=== PATIENT | female | born 2000 | race Caucasian/White ===

== ENCOUNTER 2021-01-30 10:10 | Emergency (ER) | payer OTHER ==
[~2021-01-30] VITALS: Ht 183 cm; Wt 77.1 kg
--- NOTE | 2021-01-30 10:44 | ED Lower Extremity ---
General Chief Complaint: Lower Extremity Stated Complaint: LEFT KNEE INJURY,PAIN/SWELLING Nursing Triage Note: PT TO [facility] VIA W REPORTS OF AN EPISODE OF DIZZINESS FOLLOWED BY FALLING DOWN A FLIGHT OF STAIRS AT APPROX 0945 THIS AM. PT REPORTS SHE HEARD HER LEFT KNEE "SNAP" IS UNABLE TO WALK ON IT, AND C/O PAIN. PT HAD ANOTHER EPISODE OF DIZZINESS WHILE TRANSFERRING FROM TO BED. Source: patient Exam Limitations: no limitations History of Present Illness Date Seen by Provider: Jan 30, 2021 Time Seen by Provider: 10:43 Initial Comments To ER with reports of left ankle pain. She had an episode of dizziness which caused her to fall down the stairs at about 945 this morning. She hurt her left ankle snap. She has no pain in her knee. Onset: just prior to arrival Severity: moderate Pain/Injury Location: left ankle Modifying Factors: Worse With Movement Allergies and Home Medications Patient Home Medication List Home Medication List Reviewed: Yes Hydrocodone/Acetaminophen (Hydrocodone-Acetamin 5-325 mg) 1 Each Tablet, 1 TAB PO Q4H PRN for PAIN-MODERATE (5-7) Prescribed by: COLT GAO on 01/30/21 1156 Review of Systems Constitutional: see HPI EENTM: see HPI Respiratory: no symptoms reported Cardiovascular: no symptoms reported Genitourinary: no symptoms reported Musculoskeletal: see HPI Skin: no symptoms reported Psychiatric/Neurological: No Symptoms Reported Past Qqtvbrh-[id number]-[id number] Hx Patient Social History Tobacco Use?: No Smoking Status: Never a Smoker Use of E-Cig and/or Vaping dev: No Substance use?: No Alcohol Use?: No Physical Exam Vital Signs Vital Signs - First Documented 01/30/21 10:17 Temp 36.2 Pulse 70 Resp 22 Pulse Ox 99 O2 Delivery Room Air Capillary Refill : Less Than 3 Seconds Height, Weight, BMI Height: '" Weight: lbs. oz. kg; 23.00 BMI Method: General Appearance: WD/WN, no apparent distress HEENT: PERRL/EOMI, normal ENT inspection Neck: non-tender, full range of motion Respiratory: no respiratory distress, no accessory muscle use Hips: bilateral hip non-tender, bilateral hip normal inspection, bilateral hip normal range of motion Legs: bilateral leg non-tender, bilateral leg normal inspection, bilateral leg normal range of motion Knees: bilateral knee non-tender, bilateral knee normal inspection, bilateral knee normal range of motion Ankles: left ankle other (Swelling and tenderness to palpation of the lateral malleolus no medial joint tenderness. No deformity. Strong dorsalis pedis pulse. No pain over the upper fibula or any part of the tibia.) Feet: bilateral foot non-tender, bilateral foot normal inspection Neurologic/Psychiatric: alert, normal mood/affect, oriented x 3 Skin: normal color, warm/dry Progress/Results/Core Measures Results/Orders My Orders Orders - COLT GAO APRN Ankle, Left, 3 Views (01/30/21 10:42) Vital Signs/I&O 01/30/21 10:17 Temp 36.2 Pulse 70 Resp 22 B/P (MAP) Pulse Ox 99 O2 Delivery Room Air Departure Communication (Admissions) NAME: [facility] REC#: [id number] PT STATUS: REG ER : 2000 PHYSICIAN: COLT GAO APRN ADMIT DATE: 01/30/21/ER Draft Date of Exam:01/30/21 ANKLE, LEFT, 3 VIEWS History: Left ankle pain TECHNIQUE: 3 views of the left ankle COMPARISON: None FINDINGS: There is an oblique minimally posteriorly displaced Mendez type B fracture of the lateral malleolus with moderate overlying soft tissue swelling. The ankle mortise is mildly prominent at the medial clear space, concerning for ligamentous injury. No significant joint effusion is seen. IMPRESSION: 1. Minimally displaced fracture of the lateral malleolus in the left ankle. 2. Borderline widening of the medial clear space, could be due to ligamentous injury. Dictated on workstation # [id number] Dict: 01/30/21 1140 Trans: 01/30/21 1146 BANNER [id number] Interpreted by: MARBELLA WRIGHT MD Electronically signed by: Impression Primary Impression: Fibula fracture Disposition: 01 HOME, SELF-CARE Condition: Stable Departure-Patient Inst. Decision time for Depature: 11:47 Referrals: ALEN ELI (PCP) Primary Care Physician WILFRIDO OLIVARES MD, TERRY D MD ZAFUTA,VASHTI Wolfe MD Patient Instructions: Ankle Fracture (DC) Add. Discharge Instructions: 1. Elevate the foot is much as possible for the next few days. This will help reduce swelling. Wear the Lebron wrap and the ankle splint at all times except when showering. This includes wearing it while sleeping. Call an orthopedic surgeon of your choosing tomorrow to make an appointment to be seen for follow- up in the next 1 to 2 weeks. This should not need surgery but of course I will ultimately defer that decision to the orthopedists who are the specialists. Theyll likely at least switch this splint to a cast during follow up. All discharge instructions reviewed with patient and/or family. Voiced understanding. Scripts Hydrocodone/Acetaminophen (Hydrocodone-Acetamin 5-325 mg) 1 Each Tablet 1 TAB PO Q4H PRN for PAIN-MODERATE (5-7), #20 TAB Prov: COLT GAO APRN 01/30/21 COLT GAO APRN Jan 30, 2021 10:44
--- NOTE | 2021-01-30 11:47 | Diagnostic Imaging Report ---
History: Left ankle pain TECHNIQUE: 3 views of the left ankle COMPARISON: None FINDINGS: There is an oblique minimally posteriorly displaced Mendez type B fracture of the lateral malleolus with moderate overlying soft tissue swelling. The ankle mortise is mildly prominent at the medial clear space, concerning for ligamentous injury. No significant joint effusion is seen. IMPRESSION: 1. Minimally displaced fracture of the lateral malleolus in the left ankle. 2. Borderline widening of the medial clear space, could be due to ligamentous injury. Dictated by: Dictated on workstation # [id number]
[2021-01-30] MEDS ORDERED: ACHD5005 PO (11:55)
[2021-02-03] MEDS ORDERED: ACET-2267 PO (08:44)
[2021-02-03] MEDS ORDERED: IBUP-2473 PO (08:44)
[2021-02-03] MEDS ORDERED: CETI10TA49 PO (13:14)
[2021-02-03] MEDS ORDERED: MV-M1TAB20 PO (13:14)
== END 2021-01-30 12:00 | disposition home or self-care (01) ==
LOC: ER 10:12
DX: S82.62XA Displaced fracture of lateral malleolus of left fibula, initial encounter for closed fracture (principal); W10.8XXA Fall (on) (from) other stairs and steps, initial encounter
CPT/HCPCS: 73610; 99283; L4350

== ENCOUNTER → 2021-02-01 | Outpatient (CLI) | payer OTHER ==
[~2021-02-01] MED LIST: ACET-2267 PO; ACHD5005 PO; CETI10TA49 PO; IBUP-2473 PO; MV-M1TAB20 PO
== END ==
LOC: ORTHO 11:04
PROVIDERS: ATTEND Orthopaedic Surgery
DX: S82.832A Other fracture of upper and lower end of left fibula, initial encounter for closed fracture (principal); X58.XXXA Exposure to other specified factors, initial encounter
CPT/HCPCS: 99202

== ENCOUNTER 2021-02-03 05:40 | Outpatient (CLI) | payer OTHER ==
[~2021-02-03] VITALS: Ht 182.8 cm; Wt 77.1 kg
[~2021-02-03 05:40] MED LIST changes: -ACET-2267 PO; -CETI10TA49 PO; -IBUP-2473 PO; -MV-M1TAB20 PO
[2021-02-03] MEDS ORDERED: ACET-2267 PO ×2 (08:44)
[2021-02-03] MEDS ORDERED: IBUP-2473 PO ×2 (08:44)
[2021-02-03] MEDS ORDERED: CETI10TA49 PO ×2 (13:14)
[2021-02-03] MEDS ORDERED: MV-M1TAB20 PO ×2 (13:14)
[2021-02-04] MEDS ORDERED: ACHD5005 PO ×2 (12:08)
== END 2021-02-03 13:22 | disposition home or self-care (01) ==
LOC: PREOP 05:40
PROVIDERS: ATTEND Orthopaedic Surgery
DX: Z01.818 Encounter for other preprocedural examination (principal)

== ENCOUNTER 2021-02-04 09:03 | Day surgery (SDC) | payer OTHER ==
[~2021-02-04] VITALS: Ht 182.8 cm; Wt 77.1 kg
[2021-02-04] VITALS (11 sets, daily range): BP systolic 86–123; BP diastolic 45–101
[~2021-02-04 09:03] MED LIST changes: +ACET-2267 PO; +CETI10TA49 PO; +IBUP-2473 PO; +MV-M1TAB20 PO
[2021-02-04] MEDS ORDERED: LACTATED RINGERS 1,000 ML IV PRN (09:30)
[2021-02-04] MEDS ORDERED: ceFAZolin INJECTION 1,000 MG in WATER (STERILE) FOR INJECTION 10 ML IV ONE (09:30)
[2021-02-04] MEDS ORDERED: proPOfol 200 MG/20 ML (DIPRIVAN) VIAL IV ONE (09:37)
[2021-02-04] MEDS ORDERED: LIDOCAINE PF 2% 5 ML (XYLOCAINE) VIAL ONE (09:37)
[2021-02-04] MEDS ORDERED: SEVOFLURANE (ULTANE) 15 ML INHAL SOLN ONE ×2 (09:37→11:30)
[2021-02-04] MEDS ORDERED: MIDAZOLAM 2 MG/2 ML (VERSED) VIAL ONE (09:37)
[2021-02-04] MEDS ORDERED: fentaNYL INJ 100 MCG/2 ML AMP ONE ×2 (09:37→11:27)
[2021-02-04] MEDS ORDERED: ONDANSETRON 4 MG/2 ML (SDV) Z0FRAN ONE (09:37)
[2021-02-04] MEDS ORDERED: BUPIVACAINE 0.25% 30 ML (SENSORCAINE) VIAL ONE (09:39)
[2021-02-04] MEDS ORDERED: NEO/POLY/BAC (NEOSPORIN) OINT 15 GM TUBE ONE (09:39)
--- NOTE | 2021-02-04 12:02 | Anesthesia-General Post-Op ---
General Patient Condition Mental Status/LOC: Same as Preop Cardiovascular: Satisfactory Nausea/Vomiting: Absent Respiratory: Satisfactory Pain: Controlled Complications: Absent Post Op Complications Complications None Follow Up Care/Instructions Patient Instructions None needed. Anesthesia/Patient Condition Patient Condition Patient is doing well, no complaints, stable vital signs, no apparent adverse anesthesia problems. No complications reported per nursing. RAÚL ASTUDILLO CRNA Feb 04, 2021 12:02
[2021-02-04] MEDS ORDERED: ACHD5005 PO ×2 (12:08)
[2021-02-04] MEDS ORDERED: MEPERIDINE (DEMEROL) INJ 50 MG/ML IVP ONE (12:15)
[2021-02-04] MEDS ORDERED: morphine INJ 10 MG/ML 1ML (SYR OR VIAL) IVP ONE (12:15)
[2021-02-04] MEDS ORDERED: ONDANSETRON 4 MG/2 ML (SDV) Z0FRAN IVP PRN (12:15)
--- NOTE | 2021-02-04 12:18 | Operative Report - Ortho ---
Operative Report Surgeon (s)/[employer] Surgeon MICHELINE OLIVARES MD [employer] n/a Pre-Operative Diagnosis LEFT DISTAL FIBULA FRACTURE Post-Operative Diagnosis same Operative Report Date of Procedure: Feb 04, 2021 Name of Procedure Performed: Open reduction and internal fixation of left distal fibula fracture Description & Findings After obtaining informed consent and marking the patient in the preoperative holding area, the patient was administered IV antibiotics and taken to the operating room. General anesthesia was induced. Surgical timeout was taken. The left lower extremity was prepped and draped in the usual sterile fashion. Incision was made over the distal fibula. Dissection was carried down to bone. Fracture site was irrigated, curretted, and prepared. Provision reduction was performed using Czech clamps. A lag screw was placed across the fracture site for compression. The clamps were removed. A [employer] distal fibular plate was selected and placed against the bone. C-arm was used to confirm position. A nonlocking screw was placed proximal to the fracture followed by a nonlocking screw distally. Two locking screws were placed in the diaphyseal portion of the plate followed by 2 locking screws distally. The nonlocking screw distally was removed and a locking screw was used to replace it. C-arm in the AP, oblique, and lateral planes demonstrated appropriate reduction of the fracture, intact mortise, intact syndesmosis, and appropriate hardware placement. Final images were transferred to PACS. Wound was lavaged with normal saline. Fascial layer was closed with 0 vicryl. Subcutaneous layer was closed with 3-0 vicryl. Skin was closed with 3-0 nylon. Incision site was injected with 0.25% Marcaine. Incision was dressed with xeroform, 4x4s, ABD, cast padding, posterior splint, and PEMA wraps. Patient tolerated the procedure well and was stable to the recovery room. Anesthesia Type General Estimated Blood Loss 20 mL Specimen(s) collected/removed None MICHELINE OLIVARES MD Feb 04, 2021 12:18
[2021-02-04] MEDS ORDERED: KETOROLAC 30 MG/ML VIAL IVP ONE (12:30)
--- NOTE | 2021-02-04 12:47 | Diagnostic Imaging Report ---
INDICATION: Postop open reduction and fixation. FINDINGS: 3 views. There is a side plate with bone screws transfixing distal fibular fracture. Ankle mortise is in good alignment. Articulating surfaces are smooth. IMPRESSION: ORIF with fluoroscopy time of 22 seconds reported. Dictated by: Dictated on workstation # [id number]
== END 2021-02-04 14:05 | disposition home or self-care (01) ==
LOC: SDC 09:03
PROVIDERS: ATTEND Orthopaedic Surgery
DX: S82.832A Other fracture of upper and lower end of left fibula, initial encounter for closed fracture (principal); Z79.899 Other long term (current) drug therapy; Z79.1 Long term (current) use of non-steroidal anti-inflammatories (NSAID)
CPT/HCPCS: 36415; 76000; 84703; 87081

== ENCOUNTER → 2021-02-15 | Outpatient (CLI) | payer OTHER | LOC: ORTHO 08:45 | PROVIDERS: ATTEND Orthopaedic Surgery | DX: Z48.89 Encounter for other specified surgical aftercare (principal); Z98.890 Other specified postprocedural states ==

== ENCOUNTER → 2021-03-01 | Outpatient (CLI) | payer OTHER ==
--- NOTE | 2021-03-01 09:11 | Diagnostic Imaging Report ---
INDICATION: Left ankle injury AP, oblique and lateral views of left ankle are obtained. Since 01/30/2021, there has been placement of interfragmentary screw as well as lateral fixation plate across the nondisplaced distal fibular fracture. There is no evidence of significant joint space disruption. No new abnormality seen. IMPRESSION: No evidence of complication post internal fixation of distal fibular fracture. Dictated by: Dictated on workstation # [id number]
== END ==
LOC: ORTHO 08:34
PROVIDERS: ATTEND Orthopaedic Surgery
DX: S82.832D Other fracture of upper and lower end of left fibula, subsequent encounter for closed fracture with routine healing (principal)
CPT/HCPCS: 73610

== ENCOUNTER → 2021-03-15 | Outpatient (CLI) | payer OTHER | LOC: ORTHO 09:00 | PROVIDERS: ATTEND Orthopaedic Surgery | DX: Z48.89 Encounter for other specified surgical aftercare (principal) ==

== ENCOUNTER → 2021-03-29 | Outpatient (CLI) | payer OTHER ==
--- NOTE | 2021-03-29 09:33 | Diagnostic Imaging Report ---
INDICATION: Ankle pain. EXAMINATION: Left ankle 03/29/2021. COMPARISON: 03/01/2021 FINDINGS: 3 views of the ankle Again seen is postoperative change with sideplate and multiple screws along the distal fibula. There is a fracture along the distal fibula with incomplete healing. No significant callus formation is appreciated. There is questionable mild widening along the medial ankle mortise. Correlate with clinical examination. Talar dome is intact. No new fractures identified. IMPRESSION: 1. Postoperative changes as above with questionable mild widening along the medial ankle mortise correlate clinically. Dictated by: Dictated on workstation # [id number]
== END ==
LOC: ORTHO 08:43
PROVIDERS: ATTEND Orthopaedic Surgery
DX: S82.832D Other fracture of upper and lower end of left fibula, subsequent encounter for closed fracture with routine healing (principal); X58.XXXD Exposure to other specified factors, subsequent encounter
CPT/HCPCS: 73610

== ENCOUNTER → 2021-04-05 | Outpatient (CLI) | payer OTHER | LOC: ORTHO 09:15 | PROVIDERS: ATTEND Orthopaedic Surgery | DX: S82.832D Other fracture of upper and lower end of left fibula, subsequent encounter for closed fracture with routine healing (principal); X58.XXXD Exposure to other specified factors, subsequent encounter ==

== ENCOUNTER → 2021-04-26 | Outpatient (CLI) | payer OTHER ==
--- NOTE | 2021-04-26 10:05 | Diagnostic Imaging Report ---
Left ankle at 942 hours. INDICATION: Follow-up ankle fracture. 3 views were obtained. FINDINGS: As noted on the prior exam of 03/29/2021, there is an orthopedic plate and screw fixation device securing a nondisplaced fracture of the distal fibular. On this exam, the orthopedic hardware is again evident and seem stable in position. There has been further healing of the fracture since the prior exam and the fracture line is now only barely visible on the lateral view. No other fracture or acute bony abnormality is noted. The previous exam raise a question slight widening of the ankle mortise. Ankle mortise along its medial aspect does not appear to be widened on this exam. The talar dome is smooth. The soft tissues are generally unremarkable. IMPRESSION: 1. There are posttraumatic and postsurgical changes involving the distal fibula as described above. There has been further healing of the fracture of the distal fibula, but the fracture line is still partially visualized indicating that the fracture has not healed completely. 2. There is no acute bony abnormality noted. Dictated by: Dictated on workstation # [id number]
== END ==
LOC: ORTHO 09:26
PROVIDERS: ATTEND Orthopaedic Surgery
DX: Z09 Encounter for follow-up examination after completed treatment for conditions other than malignant neoplasm (principal); S82.832D Other fracture of upper and lower end of left fibula, subsequent encounter for closed fracture with routine healing; Z98.890 Other specified postprocedural states; X58.XXXD Exposure to other specified factors, subsequent encounter
CPT/HCPCS: 73610